=== PATIENT | female | born 1970 | race Caucasian/White ===

== ENCOUNTER 2017-05-10 09:50 | Day surgery (SDC) | payer BC ==
[2017-05-09 08:30] VITALS: BMI 52.2
[~2017-05-10 09:50] MED LIST: CIPROFLOXACIN/DEXTROSE PMX 400 MG in DEXTROSE/WATER 1 200ML.BAG IVPB ONE; FAMOTIDINE 20 MG/2 ML VIAL IV PRN; HYDROmorphone 0.5 MG/0.5 ML SYRINGE IVP PRN; LIDOCAINE 1% 20 ML VIAL (10MG/ML) FOR IV START INTRADERMA PRN; MIDAZOLAM 2 MG/2 ML VIAL IV PRN; ONDANSETRON 4 MG/2 ML VIAL IVP PRN
--- NOTE | 2017-05-10 09:59 | XR ---
EXAMINATION TYPE: XR KUB DATE OF EXAM: 05/10/2017 COMPARISON: 04/09/2017 HISTORY: Preop for right-sided lithotripsy TECHNIQUE: One view abdominal series FINDINGS: The osseous structures are intact. The bowel gas pattern is nonspecific. Arthropathy of the hips and degenerative change of the spine noted. Right kidney: There is a right-sided ureteral stent. No definite calcifications are seen along the co urse of the stent. Within the right upper quadrant there is a density which could represent a lower p ole calculus measuring 5 mm. However overlying bowel content is noted which obscures the renal outlin e. Left kidney: There is a single punctate 2 mm calculus midpole left kidney. Pelvis: Calcification within the left hemipelvis is vascular. IMPRESSION: 1. Right-sided double-J ureteral stent with no definite calcifications overlying the course of the ri ght ureteral stent. As noted above bowel content limits the lower pole of the right kidney with a que stionable 5 to 6 mm calculus overlying the lower pole.
[2017-05-10] MEDS ORDERED: LIDOCAINE 1% 20 ML VIAL (10MG/ML) FOR IV START INTRADERMA ONE (11:03)
[2017-05-10] MEDS: LACTATED RINGERS 1,000 ML IV SCH ×2 (11:03→11:44)
[2017-05-10] MEDS ORDERED: PROPOFOL 10 MG/ML 20 ML VIAL IV ONE (11:47)
[2017-05-10] MEDS ORDERED: LIDOCAINE 1% INJ 10MG/ML (20 ML MDV) ONE (11:47)
[2017-05-10] MEDS ORDERED: fentaNYL (PF) 50 MCG/ML 2 ML AMP ONE (11:47)
[2017-05-10] MEDS ORDERED: MIDAZOLAM 2 MG/2 ML VIAL ONE (11:47)
[2017-05-10] MEDS ORDERED: SUCCINYLCHOLINE CHLORIDE 100 MG/5 ML SYR IV ONE (11:47)
[2017-05-10] MEDS ORDERED: KETOROLAC 30 MG/ML 1 ML VIAL ONE (11:47)
[2017-05-10 13:26] VITALS: TEMP 98
--- NOTE | 2017-05-10 13:27 | P.OP ---
Date of Procedure: 05/10/17 Preoperative Diagnosis: Right Renal Calculus Postoperative Diagnosis: Same Procedure(s) Performed: cystoscopy, right ureteral stent removal, right ureteroscopy with Holmium laser lithotripsy and stone basketing Anesthesia: JOHANNA Surgeon: Joesph Cordova Estimated Blood Loss (ml): 0 IV fluids (ml): 800 Pathology: other (calculus fragments, sent for chemical analysis) Condition: stable Disposition: PACU Indications for Procedure: 46 yo WF recently hospitalized with right renal colic due to a 7 mm right UPJ calculus. She underwent stent placement and now comes for ureteroscopic removal of the calculus. Operative Findings: 7 mm right lower pole renal calculus, fragmented to completion. Description of Procedure: The patient was taken to the operating room and placed in the dorsolithotomy position, with legs supported in Yousif stirrups. The external genitalia was prepped and draped sterilely. The 30 lens was used to introduce the 22-Djiboutian Stortz cystoscopic sheath through the urethra and into the bladder under direct vision. The bladder was examined in its entirety. The distal end of the right ureteral stent was grasped with grasping forceps, and was removed along with the cystoscope. A 0.038 inch Glidewire was passed through the stent and up to the right renal pelvis. An 11/13-Djiboutian ureteral access catheter was passed over the wire, up to the proximal ureter. The Olympus mini flexible ureteroscope was then passed through the ureteral access catheter sheath, and was advanced under direct vision up to the right renal pelvis. The right proximal ureter was noted to be somewhat tortuous. The calculus was identified within a lower pole calyx. The 200 Holmium laser probe was passed through the ureteroscope, and the calculus was fragmented using a dusting technique. Ultimately, however, the calculus broke into several fragments. A 1.9-Djiboutian nitinol basket was used to remove these calculus fragments, which were saved and sent for chemical analysis. A final inspection of the kidney revealed only residual debris too small to basket. The ureteroscope was slowly withdrawn under direct vision, along with the ureteral access catheter sheath. There was no evidence of ureteral perforation. The patient tolerated the procedure well was taken to the recovery room in stable condition.
--- NOTE | 2017-05-10 13:34 | FL ---
EXAMINATION TYPE: FL guidance operating room DATE OF EXAM: 05/10/2017 HISTORY: Flouroscopy time 39 seconds of fluoroscopy provided. IMPRESSION: 1. Fluoroscopy time.
[2017-05-10] MEDS ORDERED: DEXAMETHASONE SOD PHOSPHATE 10 MG/ML 1 ML VIAL IV ONE (14:08)
[2017-05-10] MEDS ORDERED: HYDROmorphone 2 MG/ML 1 ML SYRINGE IVP ONE ×2 (14:15→14:20)
[2017-05-10 14:44] VITALS: RESP 18
[2017-05-10 16:35] VITALS: PULSE 70
[2017-05-10 16:36] VITALS: BP 140/70
== END 2017-05-10 16:37 | disposition home or self-care (01) ==
LOC: OR 09:50
PROVIDERS: ATTEND Urology
DX: N20.0 Calculus of kidney (principal); Z88.0 Allergy status to penicillin; F17.210 Nicotine dependence, cigarettes, uncomplicated
CPT/HCPCS: 81025; 82365; 74018; 52353; C1769; J2250; J1170 ×2; J1100; J2405; J2001; J3010; J1885; J0744; J0330; J2704

== ENCOUNTER → 2017-06-14 | Outpatient (CLI) | payer BC ==
--- NOTE | 2017-06-14 13:36 | US ---
EXAMINATION TYPE: US kidneys/renal and bladder DATE OF EXAM: 06/14/2017 COMPARISON: CT 04/08/2017 CLINICAL HISTORY: 46-year-old female N13.30 Hydronephrosis. History of right kidney stone and hydrone phrosis Technique: Multiple sonographic images of the kidneys and bladder are obtained. FINDINGS: EMPLOYMENT OFFICE CLERK NOTES: Difficult and limited study due to patient body habitus. Right Kidney: 11.8 x 5.3 x 4.9 cm with possible mild pelvicaliectasis. There is a 1.9 x 2.0 x 2.6cm exophytic isoechoic area lateral inferior pole, possible inferior pole Left Kidney: 12.2 x 6.6 x 5.9 cm without hydronephrosis. Prominent lobulated contours present with a 7 mm nonobstructive calculus in the midpole. Bladder: No gross abnormality. Bilateral Jets seen: no IMPRESSION: 1. Suggestion of residual mild pelvicaliectasis on the right. Assessment limited due to patient large body habitus. 2. Prominent contour lobulations, bilateral kidneys. A more focal rounded lesion is present along the right lower pole measuring 2.6 cm. A lobulation is suspected when correlating with the 04/08/2017 CT . Given the ultrasound appearance, six-month follow-up ultrasound is recommended to ensure stability. 3. Nonobstructive 7 mm left midpole renal calculus.
== END | disposition home or self-care (01) ==
LOC: RADUSWWP 12:10
PROVIDERS: ATTEND Urology
DX: N20.0 Calculus of kidney (principal); N28.9 Disorder of kidney and ureter, unspecified; Z88.0 Allergy status to penicillin
CPT/HCPCS: 76770

== ENCOUNTER 2020-10-23 00:34 | Inpatient (IN) | payer BC ==
[2020-10-23] MEDS ORDERED: SODIUM CHLORIDE 0.9% 1,000 ML IV STA (01:08)
[2020-10-23] MEDS ORDERED: MORPHINE SULFATE 2 MG/ML SYRINGE IVP STA (01:09)
[2020-10-23] MEDS ORDERED: ONDANSETRON 4 MG/2 ML VIAL IVP STA (01:09)
[2020-10-23 01:37] LABS: Basophils # (A) 0.1 k/uL (0-0.2); Basophils % (A) 0 %; Eosinophils # (A) 0.2 k/uL (0-0.7); Eosinophils % (A) 1 %; HCT 45.6 % (34.0-46.0); HGB 14.9 gm/dL (11.4-16.0); Lymphocytes # (A) 1.2 k/uL (1.0-4.8); Lymphocytes % (A) 10 %; MCH 28.8 pg (25.0-35.0); MCHC 32.6 g/dL (31.0-37.0); MCV 88.3 fL (80.0-100.0); Mean Platelet Volume 8.2; Monocytes # (A) 0.3 k/uL (0-1.0); Monocytes % (A) 3 %; Neutrophils # (A) 10.4 k/uL (1.3-7.7); Neutrophils % (A) 85 %; Platelet Count 266 k/uL (150-450); RBC 5.16 m/uL (3.80-5.40); RDW 13.6 % (11.5-15.5); WBC 12.3 k/uL (3.8-10.6)
[2020-10-23 01:51] LABS: ALT 13 U/L (4-34); AST 32 U/L (14-36); African American GFR (CKD) >90 (>60 ml/min/1.73 sqM); Albumin 4.6 g/dL (3.5-5.0); Alkaline Phosphatase 93 U/L (38-126); Anion Gap 13 mmol/L; Blood Urea Nitrogen 13 mg/dL (7-17); Calcium 10.1 mg/dL (8.4-10.2); Carbon Dioxide 27 mmol/L (22-30); Chloride 105 mmol/L (98-107); Glucose 152 mg/dL (74-99); Lipase 44 U/L (23-300); Non-African American GFR(CKD) >90 (>60 ml/min/1.73 sqM); Sodium 145 mmol/L (137-145); Total Bilirubin 0.9 mg/dL (0.2-1.3); Total Protein 7.7 g/dL (6.3-8.2)
[2020-10-23 01:58] LABS: Potassium 5.3 mmol/L (3.5-5.1)
[2020-10-23] MEDS ORDERED: MORPHINE SULFATE 4 MG/ML SYRINGE IVP STA (02:33)
--- NOTE | 2020-10-23 02:35 | CT ---
EXAMINATION TYPE: CT abdomen pelvis w con DATE OF EXAM: 10/23/2020 COMPARISON: 04/08/2017 HISTORY: LLQ Pain CT DLP: 2803.4 mGycm Automated exposure control for dose reduction was used. CONTRAST: Performed with IV Contrast, patient injected with 100 mL of Isovue 300. Lung bases are clear. There is no pleural effusion. Heart size is normal. There is no pericardial eff usion. Liver spleen stomach pancreas gallbladder appear intact. The bile ducts are not dilated. There is no adrenal mass. There is 5 mm calculus interpolar left kidney. There is 4 mm calculus lower pole right kidney. There is no hydronephrosis. Delayed images show normal renal excretion. There is no retroperitoneal adenopathy. There is large left side abdominal wall ventral hernia containing mult iple loops of bowel. Hernia measures 19 x 12 cm. There are few distended small bowel loops in the upp er abdomen. The distal small bowel is not dilated. Transition point is the hernia. The bladder distends smoothly. Uterus is intact. I see no pelvic mass. There are sigmoid diverticula without sign of diverticulitis. The lumbar vertebra show no compression fracture. There is a first-degree L4-5 spondylolisthesis with out spondylolysis. The bony pelvis is intact. The hip joints are intact. IMPRESSION: Nonobstructing bilateral renal calculi. There is clearing of the right side obstruction compared to o ld exam. There is evidence of a partial small bowel obstruction with borderline dilated small bowel loops that measure up to 3 cm. Large incarcerated anterior abdominal wall ventral hernia which is increased sli ghtly compared to old exam. Transition point of the small bowel is at the hernia. Sigmoid diverticulosis without diverticulitis.
[2020-10-23 02:48] LABS: Amorphous Sediment,Urine Occasional /hpf; Appearance,Urine Cloudy (Clear); Bilirubin,Urine Negative (Negative); Blood,Urine Negative (Negative); Color,Urine Light Yellow; Glucose,Urine (UA) Negative (Negative); Ketones,Urine 1+ (Negative); Leukocyte Esterase,Urine Trace (Negative); Nitrite,Urine Negative (Negative); PH, Urine 7.5 (5.0-8.0); Protein,Urine Negative (Negative); Specific Gravity,Urine 1.013 (1.001-1.035); Squamous Epithelial Cell,Urine <1 /hpf (0-4); Urobilinogen,Urine <2.0 mg/dL (<2.0); WBC,Urine 3 /hpf (0-5)
[2020-10-23] MEDS ORDERED: FAMOTIDINE 20 MG/2 ML VIAL IV STA (02:58)
--- NOTE | 2020-10-23 03:02 | ED ---
Abdominal Pain HPI - General Chief Complaint: Abdominal Pain Stated Complaint: Abdominal Pain Time Seen by Provider: 10/23/20 00:55 Source: patient, family Mode of arrival: ambulatory Limitations: no limitations - History of Present Illness Initial Comments: 50 year-old female patient presents to the emergency department for evaluation of left lower quadrant abdominal pain. Pain started a few hours ago, she started having vomiting this evening so presented here for further evaluation. She has a known hernia on the left side. Had similar episode of pain two weeks ago but it resolved and she never had vomiting. She denies any fever or chills. States bowel movements and urination have been normal. Reports history of but no other abdominal surgeries. Patient denies any recent rash, cough, shortness of breath, chest pain, diarrhea, constipation, back pain, numbness, tingling, dizziness, weakness, hematuria, dysuria, urinary urgency, urinary frequency, headache, visual changes, or any other complaints. - Related Data Home Medications Medication Instructions Recorded Confirmed Ibuprofen [Motrin] 400 mg PO Q6HR PRN 04/08/17 05/09/17 Allergies Allergy/AdvReac Type Severity Reaction Status Date / Time Penicillins AdvReac Rash/Hives Verified 10/23/20 00:51 Review of Systems ROS Statement: Those systems with pertinent positive or pertinent negative responses have been documented in the HPI. ROS Other: All systems not noted in ROS Statement are negative. Past Medical History Past Medical History: No Reported History Additional Past Medical History / Comment(s): kidney stones History of Any Multi-Drug Resistant Organisms: None Reported Past Surgical History: Section, Hernia Repair Additional Past Surgical History / Comment(s): 2 c sections Past Anesthesia/Blood Transfusion Reactions: No Reported Reaction Past Psychological History: No Psychological Hx Reported Smoking Status: Current every day smoker Past Alcohol Use History: None Reported Past Drug Use History: None Reported - Past Family History Mother Family Medical History: Diabetes Mellitus General Exam Limitations: no limitations General appearance: alert, in no apparent distress, other (This is well- developed, well nourished adult female patient in mild distress related to pain. Vital signs upon presentation are temperature 97.9F, pulse 72, respirations 20, blood pressure 129/76, pulse ox 99% on room air.) Eye exam: Present: normal appearance, PERRL, EOMI. Absent: scleral icterus, conjunctival injection, periorbital swelling ENT exam: Present: normal exam, normal oropharynx, mucous membranes moist Respiratory exam: Present: normal lung sounds bilaterally. Absent: respiratory distress, wheezes, rales, rhonchi, stridor Cardiovascular Exam: Present: regular rate, normal rhythm, normal heart sounds. Absent: systolic murmur, diastolic murmur, rubs, gallop, clicks GI/Abdominal exam: Present: soft, tenderness (Generalized worse over the left lower quadrant), normal bowel sounds, hernia (Left lower abdomen). Absent: distended, guarding, rebound, rigid Neurological exam: Present: alert, oriented X3, CN II-XII intact Psychiatric exam: Present: normal affect, normal mood Skin exam: Present: warm, dry, intact, normal color. Absent: rash Course Vital Signs 10/23/20 00:47 Temperature 97.9 F Pulse Rate 72 Respiratory 20 Rate Blood Pressure 129/76 O2 Sat by Pulse 99 Oximetry Medical Decision Making - Medical Decision Making 50-year-old female patient presents for evaluation of left-sided abdominal pain and vomiting. Physical examination did reveal generalized abdominal tenderness and guarding. Labs reviewed and did reveal white blood cell count at 12.3. Neutrophils 10.4. Potassium 5.3. Lactic acid is normal. Urinalysis shows no sign of infection. CT abdomen and pelvis was obtained and did show large ventral incarcerated abdominal hernia with a partial small bowel obstruction w ith transition point at the hernia site. Case was discussed with Dr. Bradford, we will place an NG tube, start antibiotics. She is agreeable with this plan. Case discussed with my attending Dr. Drew. - Lab Data Result diagrams: 10/23/20 01:24 10/23/20 01:24 Lab Results 10/23/20 10/23/20 10/23/20 Range/Units 01:24 01:24 01:24 WBC 12.3 H (3.8-10.6) k/uL RBC 5.16 (3.80-5.40) m/uL Hgb 14.9 (11.4-16.0) gm/dL Hct 45.6 (34.0-46.0) % MCV 88.3 (80.0-100.0) fL MCH 28.8 (25.0-35.0) pg MCHC 32.6 (31.0-37.0) g/dL RDW 13.6 (11.5-15.5) % Plt Count 266 (150-450) k/uL MPV 8.2 Neutrophils % 85 % Lymphocytes % 10 % Monocytes % 3 % Eosinophils % 1 % Basophils % 0 % Neutrophils # 10.4 H (1.3-7.7) k/uL Lymphocytes # 1.2 (1.0-4.8) k/uL Monocytes # 0.3 (0-1.0) k/uL Eosinophils # 0.2 (0-0.7) k/uL Basophils # 0.1 (0-0.2) k/uL Sodium 145 (137-145) mmol/L Potassium 5.3 H (3.5-5.1) mmol/L Chloride 105 (98-107) mmol/L Carbon Dioxide 27 (22-30) mmol/L Anion Gap 13 mmol/L BUN 13 (7-17) mg/dL Creatinine 0.53 (0.52-1.04) mg/dL Est GFR (CKD-EPI)AfAm >90 (>60 ml/min/1.73 sqM) Est GFR (CKD-EPI)NonAf >90 (>60 ml/min/1.73 sqM) Glucose 152 H (74-99) mg/dL Plasma Lactic Acid Maximo (0.7-2.0) mmol/L Calcium 10.1 (8.4-10.2) mg/dL Total Bilirubin 0.9 (0.2-1.3) mg/dL AST 32 (14-36) U/L ALT 13 (4-34) U/L Alkaline Phosphatase 93 (38-126) U/L Total Protein 7.7 (6.3-8.2) g/dL Albumin 4.6 (3.5-5.0) g/dL Lipase 44 (23-300) U/L Urine Color Light Yellow Urine Appearance Cloudy H (Clear) Urine pH 7.5 (5.0-8.0) Ur Specific Butternut 1.013 (1.001-1.035) Urine Protein Negative (Negative) Urine Glucose (UA) Negative (Negative) Urine Ketones 1+ H (Negative) Urine Blood Negative (Negative) Urine Nitrite Negative (Negative) Urine Bilirubin Negative (Negative) Urine Urobilinogen <2.0 (<2.0) mg/dL Ur Leukocyte Esterase Trace H (Negative) Urine WBC 3 (0-5) /hpf Ur Squamous Epith Cells <1 (0-4) /hpf Amorphous Sediment Occasional H (None) /hpf 10/23/20 Range/Units 01:24 WBC (3.8-10.6) k/uL RBC (3.80-5.40) m/uL Hgb (11.4-16.0) gm/dL Hct (34.0-46.0) % MCV (80.0-100.0) fL MCH (25.0-35.0) pg MCHC (31.0-37.0) g/dL RDW (11.5-15.5) % Plt Count (150-450) k/uL MPV Neutrophils % % Lymphocytes % % Monocytes % % Eosinophils % % Basophils % % Neutrophils # (1.3-7.7) k/uL Lymphocytes # (1.0-4.8) k/uL Monocytes # (0-1.0) k/uL Eosinophils # (0-0.7) k/uL Basophils # (0-0.2) k/uL Sodium (137-145) mmol/L Potassium (3.5-5.1) mmol/L Chloride (98-107) mmol/L Carbon Dioxide (22-30) mmol/L Anion Gap mmol/L BUN (7-17) mg/dL Creatinine (0.52-1.04) mg/dL Est GFR (CKD-EPI)AfAm (>60 ml/min/1.73 sqM) Est GFR (CKD-EPI)NonAf (>60 ml/min/1.73 sqM) Glucose (74-99) mg/dL Plasma Lactic Acid Maximo 1.2 (0.7-2.0) mmol/L Calcium (8.4-10.2) mg/dL Total Bilirubin (0.2-1.3) mg/dL AST (14-36) U/L ALT (4-34) U/L Alkaline Phosphatase (38-126) U/L Total Protein (6.3-8.2) g/dL Albumin (3.5-5.0) g/dL Lipase (23-300) U/L Urine Color Urine Appearance (Clear) Urine pH (5.0-8.0) Ur Specific Butternut (1.001-1.035) Urine Protein (Negative) Urine Glucose (UA) (Negative) Urine Ketones (Negative) Urine Blood (Negative) Urine Nitrite (Negative) Urine Bilirubin (Negative) Urine Urobilinogen (<2.0) mg/dL Ur Leukocyte Esterase (Negative) Urine WBC (0-5) /hpf Ur Squamous Epith Cells (0-4) /hpf Amorphous Sediment (None) /hpf - Radiology Data Radiology results: report reviewed, image reviewed CT abdomen and pelvis with contrast was obtained. Report is reviewed in its entirety. Impression by Dr. Seay shows nonobstructive bilateral renal calculi. Clearing of the right side obstruction compared to old exam. There is evidence of a partial small bowel obstruction with borderline dilated small bowel loops measuring up to 3 cm very large incarcerated anterior abdominal wall ventral hernia which is increased slightly compared to old exam. Transition plasma laws up hernia. Sigmoid diverticulosis without diverticulitis. Disposition Clinical Impression: Incarcerated hernia, Partial bowel obstruction Disposition: ADMITTED IP TO THIS [facility] Condition: Serious Decision to Admit Reason: Admit from EC Decision Date: 10/23/20 Decision Time: 03:11
[2020-10-23] MEDS ORDERED: NALOXONE 0.4 MG/ML 1 ML VIAL IV PRN (03:04)
[2020-10-23] MEDS ORDERED: metroNIDAZOLE-NS PMX 500 MG in SALINE 1 100ML.BAG IVPB STA (03:10)
[2020-10-23] MEDS ORDERED: cefTRIAXone IN SWFI 1,000 MG/10 ML SYRINGE IVP STA (03:10)
[2020-10-23] MEDS: SODIUM CHLORIDE 0.9% 1,000 ML IV SCH ×2 (03:27→20:07)
[2020-10-23] MEDS: MORPHINE SULFATE 4 MG/ML SYRINGE IV PRN ×4 (05:54→20:08)
[2020-10-23] MEDS: metroNIDAZOLE-NS PMX 500 MG in SALINE 1 100ML.BAG IVPB SCH ×2 (08:08→15:16)
[2020-10-23] MEDS: ONDANSETRON 4 MG/2 ML VIAL IVP PRN ×2 (08:10→20:07)
--- NOTE | 2020-10-23 13:14 | P.GSHP ---
History of Present Illness H&P Date: 10/23/20 Chief Complaint: Abdominal pain, nausea This a 50-year-old female who was admitted through the emergency room. Patient with abdominal pain nausea. Her CAT scan shows evidence of a incarcerated hernia. There is evidence of a partial small bowel obstruction. Past Medical History Past Medical History: No Reported History Additional Past Medical History / Comment(s): kidney stones History of Any Multi-Drug Resistant Organisms: None Reported Past Surgical History: Section, Hernia Repair Additional Past Surgical History / Comment(s): 2 c sections Past Anesthesia/Blood Transfusion Reactions: No Reported Reaction Past Psychological History: No Psychological Hx Reported Smoking Status: Former smoker Past Alcohol Use History: None Reported Additional Past Alcohol Use History / Comment(s): has smoked for about 15 years; just social 2-5 cigs a day Past Drug Use History: None Reported - Past Family History Mother Family Medical History: Diabetes Mellitus Medications and Allergies Home Medications Medication Instructions Recorded Confirmed Type Ascorbic Acid [Vitamin C] 1,000 mg PO DAILY 10/23/20 10/23/20 History Calcium/Magnesium/Zinc 1 cap PO DAILY 10/23/20 10/23/20 History [Eupjwmo-Ybyylbrni-Wthv Tablet] Cholecalciferol [Vitamin D3 (25 50 mcg PO DAILY 10/23/20 10/23/20 History Mcg = 1000 Iu)] Cider Vinegar [Apple Cider Vinegar] 300 mg PO DAILY 10/23/20 10/23/20 History Patriot-3 Fatty Acids/Fish Oil [Fish 1 cap PO DAILY 10/23/20 10/23/20 History Oil 1,000 mg Softgel] Thiamine HCl [Vitamin B-1] 100 mg PO DAILY 10/23/20 10/23/20 History Allergies Allergy/AdvReac Type Severity Reaction Status Date / Time Penicillins AdvReac Rash/Hives Verified 10/23/20 10:43 Surgical - Exam Vital Signs Temp Pulse Resp BP Pulse Ox 97.9 F 72 20 129/76 99 10/23/20 00:47 10/23/20 00:47 10/23/20 00:47 10/23/20 00:47 10/23/20 00:47 - General well developed, well nourished - Eyes PERRL - ENT normal pinna - Respiratory normal expansion - Cardiovascular Rhythm: regular - Abdomen Incarcerated incisional hernia located where the umbilicus was. Abdomen: soft, non tender Results - Labs 10/23/20 01:24 10/23/20 01:24 Abnormal Lab Results - Last 24 Hours (Table) 10/23/20 10/23/20 10/23/20 Range/Units 01:24 01:24 01:24 WBC 12.3 H (3.8-10.6) k/uL Neutrophils # 10.4 H (1.3-7.7) k/uL Potassium 5.3 H (3.5-5.1) mmol/L Glucose 152 H (74-99) mg/dL Urine Appearance Cloudy H (Clear) Urine Ketones 1+ H (Negative) Ur Leukocyte Esterase Trace H (Negative) Amorphous Sediment Occasional H (None) /hpf Diabetes panel 10/23/20 Range/Units 01:24 Sodium 145 (137-145) mmol/L Potassium 5.3 H (3.5-5.1) mmol/L Chloride 105 (98-107) mmol/L Carbon Dioxide 27 (22-30) mmol/L BUN 13 (7-17) mg/dL Creatinine 0.53 (0.52-1.04) mg/dL Glucose 152 H (74-99) mg/dL Calcium 10.1 (8.4-10.2) mg/dL AST 32 (14-36) U/L ALT 13 (4-34) U/L Alkaline Phosphatase 93 (38-126) U/L Total Protein 7.7 (6.3-8.2) g/dL Albumin 4.6 (3.5-5.0) g/dL Calcium panel 10/23/20 Range/Units 01:24 Calcium 10.1 (8.4-10.2) mg/dL Albumin 4.6 (3.5-5.0) g/dL Pituitary panel 10/23/20 Range/Units 01:24 Sodium 145 (137-145) mmol/L Potassium 5.3 H (3.5-5.1) mmol/L Chloride 105 (98-107) mmol/L Carbon Dioxide 27 (22-30) mmol/L BUN 13 (7-17) mg/dL Creatinine 0.53 (0.52-1.04) mg/dL Glucose 152 H (74-99) mg/dL Calcium 10.1 (8.4-10.2) mg/dL Adrenal panel 10/23/20 Range/Units 01:24 Sodium 145 (137-145) mmol/L Potassium 5.3 H (3.5-5.1) mmol/L Chloride 105 (98-107) mmol/L Carbon Dioxide 27 (22-30) mmol/L BUN 13 (7-17) mg/dL Creatinine 0.53 (0.52-1.04) mg/dL Glucose 152 H (74-99) mg/dL Calcium 10.1 (8.4-10.2) mg/dL Total Bilirubin 0.9 (0.2-1.3) mg/dL AST 32 (14-36) U/L ALT 13 (4-34) U/L Alkaline Phosphatase 93 (38-126) U/L Total Protein 7.7 (6.3-8.2) g/dL Albumin 4.6 (3.5-5.0) g/dL Assessment and Plan Assessment: Partial small bowel traction related to incarcerated hernia. Patient observed today. If she shows no improvement she will need to undergo repair of incarcerated hernia.
--- NOTE | 2020-10-24 00:02 | P.CON ---
Consult Note - . Consult date: 10/23/20 Assessment/Plan:: Reason for consult - Medical management Ms. Aparicio is a 50-year-old female with a past medical history of morbid obesity, nephrolithiasis, hernia repair coming into the hospital with a chief complaint of left lower quadrant abdominal pain. Patient states that she started to have left lower abdominal pain for the past couple of days on and off, she thought it would go away did not pay much attention. But this morning the pain has wor sened and she started to throw up couple of times. She also reported loss of appetite. Patient denied having any fevers chills or rigors. No chest pain or palpitations. No cough or difficulty breathing. No dysuria or hematuria. Patient states that she has history of umbilical hernia. In the ER patient had temperature 97.9, heart rate 72, respiratory rate 20, blood pressure 129/76 saturating at 99% on room air. She had a CAT scan of the abdomen and pelvis showing evidence of partial small bowel obstruction and large incarcerated anterior abdominal wall ventral hernia, sigmoid diverticulosis without diverticulitis. On reviewing her labs white count of 12.3, hemoglobin 14.9, platelets 266. Sodium 145, potassium 5.3, chloride 105, bicarb 27, BUN 13, creatinine 0.53. REVIEW OF SYSTEMS: CONSTITUTIONAL: No fever, no malaise, no fatigue. HEENT: No recent visual problems or hearing problems. Denied any sore throat. CARDIOVASCULAR: No chest pain, palpitations or lower extremity swelling PULMONARY: No shortness of breath, no cough, no hemoptysis. GASTROINTESTINAL: As per HPI NEUROLOGICAL: No headaches, no weakness, no numbness. HEMATOLOGICAL: Denies any bleeding or petechiae. GENITOURINARY: Denies any burning micturition, frequency, or urgency. MUSCULOSKELETAL/RHEUMATOLOGICAL: Denies any joint pain, swelling, or any muscle pain. ENDOCRINE: Denies any polyuria or polydipsia. The rest of the 14-point review of systems is negative. Past Medical History Past Medical History: No Reported History Additional Past Medical History / Comment(s): kidney stones History of Any Multi-Drug Resistant Organisms: None Reported Past Surgical History: Section, Hernia Repair Additional Past Surgical History / Comment(s): 2 c sections Past Anesthesia/Blood Transfusion Reactions: No Reported Reaction Past Psychological History: No Psychological Hx Reported Smoking Status: Former smoker Past Alcohol Use History: None Reported Additional Past Alcohol Use History / Comment(s): has smoked for about 15 years; just social 2-5 cigs a day Past Drug Use History: None Reported - Past Family History Mother Family Medical History: Diabetes Mellitus Medications and Allergies Home Medications Medication Instructions Recorded Confirmed Type Ascorbic Acid [Vitamin C] 1,000 mg PO DAILY 10/23/20 10/23/20 History Calcium/Magnesium/Zinc 1 cap PO DAILY 10/23/20 10/23/20 History [Kkzzvqm-Vnpqhgjhs-Dwnt Tablet] Cholecalciferol [Vitamin D3 (25 50 mcg PO DAILY 10/23/20 10/23/20 History Mcg = 1000 Iu)] Cider Vinegar [Apple Cider Vinegar] 300 mg PO DAILY 10/23/20 10/23/20 History [place]-3 Fatty Acids/Fish Oil [Fish 1 cap PO DAILY 10/23/20 10/23/20 History Oil 1,000 mg Softgel] Thiamine HCl [Vitamin B-1] 100 mg PO DAILY 10/23/20 10/23/20 History Allergies Allergy/AdvReac Type Severity Reaction Status Date / Time Penicillins AdvReac Rash/Hives Verified 10/23/20 10:43 Physical Exam Vitals: Vital Signs Temp Pulse Pulse Resp BP BP Pulse Ox 10/23/20 12:23 98.1 F 65 17 140/73 96 10/23/20 08:00 68 16 10/23/20 04:10 98.3 F 68 16 154/81 100 10/23/20 03:45 66 18 167/73 98 10/23/20 00:47 97.9 F 72 20 129/76 99 Intake and Output 10/23/20 10/23/20 10/23/20 06:59 14:59 22:59 Intake Total 100 Balance 100 Intake: Intake, IV Titration 100 Amount metroNIDAZOLE-NS PMX 500 100 mg In Saline 1 100ml.bag @ 100 mls/hr IVPB Q8HR [facility] Rx#:[id number] Other: # Voids 1 1 Weight 122.47 kg PHYSICAL EXAMINATION: GENERAL: The patient is alert and oriented x3, not in any acute distress. morbidly obese HEENT: Pupils are round and equally reacting to light. EOMI. No scleral icterus. No conjunctival pallor. CARDIOVASCULAR: S1 and S2 present. No murmurs, rubs, or gallops. PULMONARY: Chest is clear to auscultation, no wheezing or crackles. ABDOMEN: + tenderness in the left lower quadrant MUSCULOSKELETAL: No joint swelling or deformity. EXTREMITIES: No edema NEUROLOGICAL: Gross neurological examination did not reveal any focal deficits. SKIN:No rash Results CBC & Chem 7: 10/23/20 01:24 10/23/20 01:24 Labs: Abnormal Lab Results - Last 24 Hours (Table) 10/23/20 10/23/20 10/23/20 Range/Units 01:24 01:24 01:24 WBC 12.3 H (3.8-10.6) k/uL Neutrophils # 10.4 H (1.3-7.7) k/uL Potassium 5.3 H (3.5-5.1) mmol/L Glucose 152 H (74-99) mg/dL Urine Appearance Cloudy H (Clear) Urine Ketones 1+ H (Negative) Ur Leukocyte Esterase Trace H (Negative) Amorphous Sediment Occasional H (None) /hpf Thrombosis Risk Factor Assmnt - Choose All That Apply Each Factor Represents 1 point: Age 41-60 years, Obesity (BMI >25) Other Risk Factors: No Other congenital or acquired thrombophilia - If yes, enter type in comment: No Thrombosis Risk Factor Assessment Total Risk Factor Score: 2 Thrombosis Risk Factor Assessment Level: Low Risk ASSESSMENT Incarcerated anterior abdominal wall ventral hernia Leukocytosis secondary to above Hyperkalemia History of nephrolithiasis Morbid obesity with BMI of 47.8 Plan: Patient does not have significant medical history, she takes multivitamins. She would be a low risk for moderate risk surgery. Continue with ceftriaxone and Flagyl for incarcerated hernia. Continue with IV fluids and pain medications. Patient to be continued NPO. Management of incarcerated hernia as per primary team. Further recommendations to follow depending on the progress of the patient.
[2020-10-24] MEDS: metroNIDAZOLE-NS PMX 500 MG in SALINE 1 100ML.BAG IVPB SCH ×4 (00:12→23:36)
[2020-10-24] MEDS: SODIUM CHLORIDE 0.9% 1,000 ML IV SCH ×2 (06:04→19:03)
[2020-10-24] MEDS: PANTOPRAZOLE 40 MG/10 ML VIAL IVP SCH (09:25)
--- NOTE | 2020-10-24 13:41 | P.PN ---
Progress Note - Text Progress Note Date: 10/24/20 Patient still has complaints of nausea. She has completed indigestion. On exam vital signs are stable. Abdomen soft. Hernias mildly tender. Small bowel obstruction related to incarcerated ventral hernia. Patient will undergo operative repair tomorrow
[2020-10-24 17:21] LABS: African American GFR (CKD) >90 (>60 ml/min/1.73 sqM); Anion Gap 12 mmol/L; Blood Urea Nitrogen 12 mg/dL (7-17); Calcium 9.9 mg/dL (8.4-10.2); Carbon Dioxide 18 mmol/L (22-30); Chloride 114 mmol/L (98-107); Glucose 124 mg/dL (74-99); Non-African American GFR(CKD) >90 (>60 ml/min/1.73 sqM); Sodium 144 mmol/L (137-145)
[2020-10-24 17:52] LABS: Potassium 4.9 mmol/L (3.5-5.1)
--- NOTE | 2020-10-24 22:23 | P.PN ---
Subjective Progress Note Date: 10/24/20 Principal diagnosis: Incarcerated hernia Ms. Aparicio is a 50-year-old female with a past medical history of morbid obesity, nephrolithiasis, hernia repair coming into the hospital with a chief complaint of left lower quadrant abdominal pain. Patient states that she started to have left lower abdominal pain for the past couple of days on and off, she thought it would go away did not pay much attention. But this morning the pain has worsened and she started to throw up couple of times. She also reported loss of appetite. Patient denied having any fevers chills or rigors. No chest pain or palpitations. No cough or difficulty breathing. No dysuria or hematuria. Patient states that she has history of umbilical hernia. In the ER patient had temperature 97.9, heart rate 72, respiratory rate 20, blood pressure 129/76 saturating at 99% on room air. She had a CAT scan of the abdomen and pelvis showing evidence of partial small bowel obstruction and large incarcerated anterior abdominal wall ventral hernia, sigmoid diverticulosis without diverticulitis. On reviewing her labs white count of 12.3, hemoglobin 14.9, platelets 266. Sodium 145, potassium 5.3, chloride 105, bicarb 27, BUN 13, creatinine 0.53. On 10/24/2020 -patient is seen and examined at the bedside. She is sitting comfortably in the chair by the bedside appears to be no acute distress. Patient states that her abdominal pain is improving. But she complains of nausea and reflux-like symptoms, she thinks she might be having a heartburn. She denies having any fevers chills or rigors. No chest pain or palpitations. On reviewing her vitals temperature 98.7, heart rate 66, respiratory rate 16, blood pressure 184/82, saturating 96% on room air. On reviewing her labs from this morning sodium 144, potassium 4.9, hemolyzed specimen, chloride 114, bicarb 18, BUN 12, creatinine 0.42. Patient continues to be on antibiotics in the form of ceftriaxone and Flagyl. Active Medications Sodium Chloride (Saline 0.9%) 1,000 mls @ 75 mls/hr IV .[id number] [facility] Last Admin: 10/24/20 19:03 Dose: 75 mls/hr Documented by: Metronidazole 500 mg/ IV (Solution) 100 mls @ 100 mls/hr IVPB Q8HR [facility] Last Admin: 10/24/20 17:48 Dose: 100 mls/hr Documented by: Ceftriaxone Sodium 1 gm/ (Sodium Chloride) 50 mls @ 100 mls/hr IVPB Q24H [facility] Last Admin: 10/24/20 20:35 Dose: 100 mls/hr Documented by: Morphine Sulfate (Morphine Sulfate 4 Mg/Ml Syringe) 4 mg IV Q4HR PRN PRN Reason: Severe Pain Last Admin: 10/23/20 20:08 Dose: 4 mg Documented by: Naloxone HCl (Naloxone 0.4 Mg/Ml 1 Ml Vial) 0.2 mg IV Q2M PRN PRN Reason: Opioid Reversal Ondansetron HCl (Ondansetron 4 Mg/2 Ml Vial) 4 mg IVP Q8HR PRN PRN Reason: Nausea And Vomiting Last Admin: 10/23/20 20:07 Dose: 4 mg Documented by: Pantoprazole Sodium (Pantoprazole 40 Mg/10 Ml Vial) 40 mg IVP DAILY [facility] Last Admin: 10/24/20 09:25 Dose: 40 mg Documented by: Objective - Vital Signs Vital signs: Vital Signs Temp 98.7 F 10/24/20 05:00 Pulse 66 10/24/20 05:00 Resp 16 10/24/20 05:00 BP 184/82 10/24/20 05:00 Pulse Ox 96 10/24/20 05:00 Intake & Output 10/23/20 10/24/20 10/24/20 18:59 06:59 18:59 Intake Total 240 150 Balance 240 150 Intake: Intake, IV Titration 150 Amount cefTRIAXone 1 gm In 50 Sodium Chloride 0.9% 50 ml @ 100 mls/hr IVPB Q24H [facility] Rx#:[id number] metroNIDAZOLE-NS PMX 500 100 mg In Saline 1 100ml.bag @ 100 mls/hr IVPB Q8HR [facility] Rx#:[id number] Oral 240 0 Other: # Voids 4 2 - Exam PHYSICAL EXAMINATION: GENERAL: The patient is alert and oriented x3, not in any acute distress. morbidly obese HEENT: Pupils are round and equally reacting to light. EOMI. No scleral icterus. No conjunctival pallor. CARDIOVASCULAR: S1 and S2 present. No murmurs, rubs, or gallops. PULMONARY: Chest is clear to auscultation, no wheezing or crackles. ABDOMEN: + tenderness in the left lower quadrant MUSCULOSKELETAL: No joint swelling or deformity. EXTREMITIES: No edema NEUROLOGICAL: Gross neurological examination did not reveal any focal deficits. SKIN:No rash - Labs CBC & Chem 7: 10/23/20 01:24 10/24/20 16:52 Assessment and Plan Assessment: ASSESSMENT Incarcerated anterior abdominal wall ventral hernia Leukocytosis secondary to above Hyperkalemia - resolved History of nephrolithiasis Morbid obesity with BMI of 47.8 Systolic BP high - could be due to pain Plan: Patient does not have significant medical history, she takes multivi tamins. She would be a low risk for moderate risk surgery. Continue with ceftriaxone and Flagyl for incarcerated hernia. Continue with IV fluids and pain medications. Patient to be continued NPO. Management of incarcerated hernia as per primary team. Further recommendations to follow depending on the progress of the patient.
[2020-10-25] MEDS ORDERED: hydrALAZINE HCL 20 MG/ML 1 ML VIAL IVP PRN (01:42)
[2020-10-25] MEDS: ENOXAPARIN 40 MG/0.4 ML SYRINGE SQ SCH (08:50)
[2020-10-25] MEDS: metroNIDAZOLE-NS PMX 500 MG in SALINE 1 100ML.BAG IVPB SCH ×3 (08:53→23:25)
[2020-10-25] MEDS: PANTOPRAZOLE 40 MG/10 ML VIAL IVP SCH (08:54)
[2020-10-25] MEDS ORDERED: PROPOFOL 10 MG/ML 20 ML VIAL IV ONE (10:23)
[2020-10-25] MEDS ORDERED: fentaNYL (PF) 50 MCG/ML 2 ML AMP ONE (10:23)
[2020-10-25] MEDS ORDERED: GLYCOPYRROLATE 0.2 MG/ML 2 ML VIAL ONE (10:23)
[2020-10-25] MEDS ORDERED: ROCURONIUM 10 MG/ML (5 ML VIAL) IV ONE (10:23)
[2020-10-25] MEDS ORDERED: HEPARIN SODIUM,PORCINE 5,000 UNIT/ML 1 ML VIAL ONE (10:23)
[2020-10-25] MEDS ORDERED: NEOSTIGMINE 1 MG/ML 10 ML VIAL ONE (10:23)
[2020-10-25] MEDS ORDERED: ONDANSETRON 4 MG/2 ML VIAL ONE (10:23)
[2020-10-25] MEDS ORDERED: SUCCINYLCHOLINE CHLORIDE 100 MG/5 ML SYR IV ONE (10:23)
[2020-10-25] MEDS ORDERED: MIDAZOLAM 2 MG/2 ML VIAL ONE (10:23)
[2020-10-25] MEDS ORDERED: DEXAMETHASONE SOD PHOSPHATE 10 MG/ML 1 ML VIAL ONE (10:23)
[2020-10-25] MEDS ORDERED: KETOROLAC 15 MG/ML 1 ML VIAL ONE (10:23)
[2020-10-25] MEDS ORDERED: HYDROmorphone (PF) 1 MG/ML ONE (10:23)
[2020-10-25] MEDS ORDERED: SODIUM CHLORIDE 0.9% 1,000 ML IV ONE (10:25)
[2020-10-25] MEDS ORDERED: SODIUM CHLORIDE 0.9% 150 ML with ceFAZolin 3,000 MG IV ONE ×2 (10:45)
[2020-10-25] MEDS ORDERED: LACTATED RINGERS 1,000 ML IV ONE (11:12)
[2020-10-25] MEDS ORDERED: HYDROmorphone 0.5 MG/0.5 ML SYRINGE IVP ONE ×2 (12:05→12:15)
--- NOTE | 2020-10-25 12:35 | P.OP ---
Date of Procedure: 10/25/20 Preoperative Diagnosis: Incarcerated incisional hernia Postoperative Diagnosis: Incarcerated incisional hernia Procedure(s) Performed: Open repair of incarcerated incisional hernia Omentectomy Anesthesia: JOHANNA Surgeon: Kelechi Bradford Estimated Blood Loss (ml): 20 Pathology: other (Omentum) Condition: stable Disposition: PACU Description of Procedure: The patient's placed on the operating table supine position. She received general anesthesia. Her abdomen was prepped and draped usual fashion. The abdomen was entered through midline incision. Some taste as stat was divided. The hernia sac was then dissected free. 30 sac was then opened. And then the fascia was opened as well. There was a small bowel obstruction within the hernia sac. The adhesions were lysed. The nonviable omentum was transected and sent to pathology. The hernia sacs of pathology. The fascia was then closed with interrupted #1 Ethibond suture. Skin was closed rei. Patient top she will was sent to recovery room stable condition.
--- NOTE | 2020-10-25 14:54 | P.PN ---
Progress Note - Text Progress Note Date: 10/25/20 Presenting complaint: Incarcerated hernia Hospital course: Ms. Aparicio is a 50-year-old female with a past medical history of morbid obesity, nephrolithiasis, hernia repair coming into the hospital with a chief complaint of left lower quadrant abdominal pain. Patient states that she started to have left lower abdominal pain for the past couple of days on and off, she thought it would go away did not pay much attention. But this morning the pain has worsened and she started to throw up couple of times. also reported loss of appetite. denied having any fevers chills or rigors. No chest pain or palpitations. No cough or difficulty breathing. No dysuria or hematuria. she has history of umbilical hernia. In the ER patient had temperature 97.9, heart rate 72, respiratory rate 20, blood pressure 129/76 saturating at 99% on room air. She had a CAT scan of the abdomen and pelvis showing evidence of partial small bowel obstruction and large incarcerated anterior abdominal wall ventral hernia, sigmoid diverticulosis without diverticulitis. Today: Open repair of incarcerated incisional hernia. Postprocedure patient has abdominal binder. No nausea vomiting. Some abdominal pain. Review of systems: Was done for constitutional, cardiovascular, GI, pulmonary. relevant finding as above Active Medications Enoxaparin Sodium (Enoxaparin 40 Mg/0.4 Ml Syringe) 40 mg SQ DAILY [facility] Last Admin: 10/25/20 08:50 Dose: Not Given Documented by: Hydralazine HCl (Hydralazine Hcl 20 Mg/Ml 1 Ml Vial) 10 mg IVP Q6HR PRN PRN Reason: Blood Pressure - High Hydromorphone HCl (Hydromorphone 1 Mg/Ml 1 Ml Syringe) 1 mg IVP Q3HR PRN PRN Reason: Pain Sodium Chloride (Saline 0.9%) 1,000 mls @ 75 mls/hr IV .[id number] [facility] Last Admin: 10/24/20 19:03 Dose: 75 mls/hr Documented by: Metronidazole 500 mg/ IV (Solution) 100 mls @ 100 mls/hr IVPB Q8HR [facility] Last Admin: 10/25/20 08:53 Dose: 100 mls/hr Documented by: Ceftriaxone Sodium 1 gm/ (Sodium Chloride) 50 mls @ 100 mls/hr IVPB Q24H [facility] Last Admin: 10/24/20 20:35 Dose: 100 mls/hr Documented by: Morphine Sulfate (Morphine Sulfate 4 Mg/Ml Syringe) 4 mg IV Q4HR PRN PRN Reason: Severe Pain Last Admin: 10/23/20 20:08 Dose: 4 mg Documented by: Naloxone HCl (Naloxone 0.4 Mg/Ml 1 Ml Vial) 0.2 mg IV Q2M PRN PRN Reason: Opioid Reversal Ondansetron HCl (Ondansetron 4 Mg/2 Ml Vial) 4 mg IVP Q8HR PRN PRN Reason: Nausea And Vomiting Last Admin: 10/23/20 20:07 Dose: 4 mg Documented by: Pantoprazole Sodium (Pantoprazole 40 Mg/10 Ml Vial) 40 mg IVP DAILY [facility] Last Admin: 10/25/20 08:54 Dose: 40 mg Documented by: INVESTIGATIONS, reviewed in the clinical context: Potassium 4.9 creatinine 0.42 WBC 12.3 hemoglobin 14.9 platelets 266 Computed tomography scan of the abdomen pelvis with contrast: Kidney stones in both the left and right kidney. Large left-sided abdominal wall ventral hernia containing multiple loops of small bowel. Transition point is of the hernia. Sigmoid diverticulosis Assessment and plan: -Acute incarcerated left Sided abdominal wall ventral hernia, containing multiple loops of small bowel. Underwent open repair of the same. Abdominal binder. -Sigmoid diverticulosis, asymptomatic -Bilateral nephrolithiasis, asymptomatic Follow clinically -Morbid obesity BMI 47.8 Follow clinically and follow with PCP Patient's postoperative. IV fluids. On IV ceftriaxone and IV Flagyl. Due to prophylaxis. Increase activity as tolerated. Care was discussed with the patient. Questions answered.
[2020-10-25] MEDS: HYDROmorphone 1 MG/ML 1 ML SYRINGE IVP PRN (17:12)
[2020-10-25] MEDS: SODIUM CHLORIDE 0.9% 1,000 ML IV SCH ×2 (17:13→21:06)
[2020-10-26] MEDS: HYDROmorphone 1 MG/ML 1 ML SYRINGE IVP PRN ×3 (04:26→20:17)
[2020-10-26] MEDS: PANTOPRAZOLE 40 MG/10 ML VIAL IVP SCH (07:45)
[2020-10-26] MEDS: metroNIDAZOLE-NS PMX 500 MG in SALINE 1 100ML.BAG IVPB SCH ×3 (07:45→23:28)
[2020-10-26] MEDS: ENOXAPARIN 40 MG/0.4 ML SYRINGE SQ SCH (07:45)
[2020-10-26] MEDS: SODIUM CHLORIDE 0.9% 1,000 ML IV SCH ×2 (07:53→23:27)
[2020-10-26] MEDS ORDERED: ENOXAPARIN 40 MG/0.4 ML SYRINGE SQ SCH (09:00)
--- NOTE | 2020-10-26 13:39 | P.PN ---
Subjective Progress Note Date: 10/26/20 CHIEF COMPLAINT: Incarcerated incisional hernia HISTORY OF PRESENT ILLNESS: Patient is status post open repair of incarcerated incisional hernia and omentectomy. Postop day #1. Patient reports getting up to move and she had small amount of blood gush from her incision site. Patient reports that her pain is controlled. She denies any vomiting. She's had some mild nausea. No BM or flatus yet. She is currently on a full liquid diet. Afebrile. Sodium 144 potassium 4.9 CO2 18 creatinine 0.42 Nursing staff did notify me this afternoon the patient did have another small amounts about quarter size of blood gush from distal incision. PHYSICAL EXAM: VITAL SIGNS: Reviewed. GENERAL: Well-developed in no acute distress. HEENT: No sclera icterus. Extraocular movements grossly intact. Moist buccal mucosa. Head is atraumatic, normocephalic. ABDOMEN: Soft. Nondistended. Obese. There is blood noted at the distal portion of the incision dressing. The dressing has been reinforced. The britany nforced dressing is clean and dry NEUROLOGIC: Alert and oriented. Cranial nerves II through XII grossly intact. ASSESSMENT: 1. Incarcerated incisional hernia status post open repair PLAN: -We'll have nursing staff change in reinforced dressing. -Continue with abdominal binder. -Continue full liquid diet -Continue antibiotics -Encourage patient to increase activity -Encourage patient to use incentive spirometer -GI prophylaxis Protonix and DVT prophylaxis Lovenox Physician Sample Card Maker note has been reviewed by physician. Signing provider agrees with the documented findings, assessment, and plan of care. Objective - Vital Signs Vital signs: Vital Signs Temp 97.9 F 10/26/20 12:21 Pulse 56 L 10/26/20 12:21 Resp 19 10/26/20 12:21 BP 128/76 10/26/20 12:21 Pulse Ox 93 L 10/26/20 12:21 Intake & Output 10/25/20 10/26/20 10/26/20 18:59 06:59 18:59 Intake Total 2130 1050 Output Total 255 600 Balance 1875 450 Intake: IV 1450 Intake, IV Titration 680 650 Amount Sodium Chloride 0.9% 1, 500 000 ml @ 75 mls/hr IV . [id number] [facility] Rx#:[id number] cefTRIAXone 1 gm In 680 50 Sodium Chloride 0.9% 50 ml @ 100 mls/hr IVPB Q24H [facility] Rx#:[id number] metroNIDAZOLE-NS PMX 500 100 mg In Saline 1 100ml.bag @ 100 mls/hr IVPB Q8HR [facility] Rx#:[id number] Oral 400 Output: Urine 205 600 Estimated Blood Loss 50 Other: Voiding Method Toilet Indwelling Catheter Indwelling Catheter - Labs CBC & Chem 7: 10/23/20 01:24 10/24/20 16:52
--- NOTE | 2020-10-26 17:53 | P.PN ---
Progress Note - Text Progress Note Date: 10/26/20 Presenting complaint: Incarcerated hernia Hospital course: Ms. Aparicio is a 50-year-old female with a past medical history of morbid obesity, nephrolithiasis, hernia repair coming into the hospital with a chief complaint of left lower quadrant abdominal pain. Patient states that she started to have left lower abdominal pain for the past couple of days on and off, she thought it would go away did not pay much attention. But this morning the pain has worsened and she started to throw up couple of times. also reported loss of appetite. denied having any fevers chills or rigors. No chest pain or palpitations. No cough or difficulty breathing. No dysuria or hematuria. she has history of umbilical hernia. In the ER patient had temperature 97.9, heart rate 72, respiratory rate 20, blood pressure 129/76 saturating at 99% on room air. She had a CAT scan of the abdomen and pelvis showing evidence of partial small bowel obstruction and large incarcerated anterior abdominal wall ventral hernia, sigmoid diverticulosis without diverticulitis. October 25: Open repair of incarcerated incisional hernia. Postprocedure patient has abdominal binder. Today: Sitting up in a chair. Abdominal pain. Had some wheezing from the incision site. Distaste in the mouth. No flatus. at the bedside. Review of systems: Was done for constitutional, cardiovascular, GI, pulmonary. relevant finding as above Active Medications Enoxaparin Sodium (Enoxaparin 40 Mg/0.4 Ml Syringe) 40 mg SQ DAILY [facility] Last Admin: 10/26/20 07:45 Dose: 40 mg Documented by: Hydralazine HCl (Hydralazine Hcl 20 Mg/Ml 1 Ml Vial) 10 mg IVP Q6HR PRN PRN Reason: Blood Pressure - High Hydromorphone HCl (Hydromorphone 1 Mg/Ml 1 Ml Syringe) 1 mg IVP Q3HR PRN PRN Reason: Pain Last Admin: 10/26/20 11:34 Dose: 1 mg Documented by: Sodium Chloride (Saline 0.9%) 1,000 mls @ 75 mls/hr IV .[id number] [facility] Last Admin: 10/26/20 07:53 Dose: 75 mls/hr Documented by: Metronidazole 500 mg/ IV (Solution) 100 mls @ 100 mls/hr IVPB Q8HR [facility] Last Admin: 10/26/20 15:56 Dose: 100 mls/hr Documented by: Ceftriaxone Sodium 1 gm/ (Sodium Chloride) 50 mls @ 100 mls/hr IVPB Q24H [facility] Last Admin: 10/25/20 20:25 Dose: 100 mls/hr Documented by: Morphine Sulfate (Morphine Sulfate 4 Mg/Ml Syringe) 4 mg IV Q4HR PRN PRN Reason: Severe Pain Last Admin: 10/23/20 20:08 Dose: 4 mg Documented by: Naloxone HCl (Naloxone 0.4 Mg/Ml 1 Ml Vial) 0.2 mg IV Q2M PRN PRN Reason: Opioid Reversal Ondansetron HCl (Ondansetron 4 Mg/2 Ml Vial) 4 mg IVP Q8HR PRN PRN Reason: Nausea And Vomiting Last Admin: 10/23/20 20:07 Dose: 4 mg Documented by: Pantoprazole Sodium (Pantoprazole 40 Mg/10 Ml Vial) 40 mg IVP DAILY [facility] Last Admin: 10/26/20 07:45 Dose: 40 mg Documented by: On examination: VITAL SIGNS: 97.9, 56, 19, 1 28 x 7 6, 93% room air GENERAL APPEARANCE: Reclining in a chair. Awake tired HEENT: Normal external appearance of nose and ear. Oral cavity normal EYES: Pupils equal. Conjunctiva normal. NECK: JVD not raised. Mass not palpable. RESPIRATORY: Respiratory effort normal. Lungs clear to auscultation. CARDIOVASCULAR: First and second sounds normal. No edema. ABDOMEN: Tender, binder in place, no mass palpable, blood soaked dressing PSYCHIATRY: Alert and oriented x3. Mood and affect anxious INVESTIGATIONS, reviewed in the clinical context: Potassium 4.9 creatinine 0.42 WBC 12.3 hemoglobin 14.9 platelets 266 Computed tomography scan of the abdomen pelvis with contrast: Kidney stones in both the left and right kidney. Large left-sided abdominal wall ventral hernia containing multiple loops of small bowel. Transition point is of the hernia. Sigmoid diverticulosis Assessment and plan: -Acute incarcerated left Sided abdominal wall ventral hernia, containing multiple loops of small bowel. Underwent open repair of the same. Abdominal binder. -Significant oozing from incisional site DC Lovenox. Follow CBC -Sigmoid diverticulosis, asymptomatic -Bilateral nephrolithiasis, asymptomatic Follow clinically -Morbid obesity BMI 47.8 Follow clinically and follow with PCP Discussed with the patient and had the bedside. Change dressing follow with surgery. Binder to remain in place. Check CBC BMP
[2020-10-27 06:00] LABS: African American GFR (CKD) >90 (>60 ml/min/1.73 sqM); Anion Gap 6 mmol/L; Blood Urea Nitrogen 12 mg/dL (7-17); Calcium 8.5 mg/dL (8.4-10.2); Carbon Dioxide 23 mmol/L (22-30); Chloride 110 mmol/L (98-107); Glucose 104 mg/dL (74-99); Non-African American GFR(CKD) >90 (>60 ml/min/1.73 sqM); Potassium 4.2 mmol/L (3.5-5.1); Sodium 139 mmol/L (137-145)
[2020-10-27 06:27] LABS: Basophils # (A) 0.1 k/uL (0-0.2); Basophils % (A) 1 %; Eosinophils # (A) 0.2 k/uL (0-0.7); Eosinophils % (A) 2 %; HGB 13.5 gm/dL (11.4-16.0); Lymphocytes # (A) 2.3 k/uL (1.0-4.8); Lymphocytes % (A) 21 %; MCH 29.8 pg (25.0-35.0); MCV 90.1 fL (80.0-100.0); Mean Platelet Volume 9.3; Monocytes # (A) 0.7 k/uL (0-1.0); Monocytes % (A) 7 %; Neutrophils # (A) 7.7 k/uL (1.3-7.7); Neutrophils % (A) 69 %; RBC 4.55 m/uL (3.80-5.40); RDW 13.8 % (11.5-15.5)
[2020-10-27 06:29] LABS: Platelet Count 128 k/uL (150-450)
[2020-10-27] MEDS: metroNIDAZOLE-NS PMX 500 MG in SALINE 1 100ML.BAG IVPB SCH ×3 (08:40→23:36)
[2020-10-27] MEDS: PANTOPRAZOLE 40 MG/10 ML VIAL IVP SCH (08:41)
[2020-10-27] MEDS ORDERED: NA PHOS,M-B/NA PHOS,DI-BA 133 ML ENEMA RECTAL ONE (15:00)
[2020-10-27] MEDS: SODIUM CHLORIDE 0.9% 1,000 ML IV SCH (15:00)
--- NOTE | 2020-10-27 15:02 | P.PN ---
Subjective Progress Note Date: 10/27/20 CHIEF COMPLAINT: Incarcerated incisional hernia HISTORY OF PRESENT ILLNESS: Patient is status post open repair of incarcerated incisional hernia and omentectomy. Postop day #2. Patient reports that her p ain is controlled. She denies any nausea or vomiting. She is having flatus. No bowel movement. Afebrile. WBC is 11. She's currently on a full liquid diet. Patient has had no further bleeding from her incision site. PHYSICAL EXAM: VITAL SIGNS: Reviewed. GENERAL: Well-developed in no acute distress. HEENT: No sclera icterus. Extraocular movements grossly intact. Moist buccal mucosa. Head is atraumatic, normocephalic. ABDOMEN: Soft. Nondistended. Obese. Incisions clean dry and intact NEUROLOGIC: Alert and oriented. Cranial nerves II through XII grossly intact. ASSESSMENT: 1. Incarcerated incisional hernia status post open repair PLAN: -Anticipate discharge tomorrow -And [place] for oral pain medication -Continue with abdominal binder. -Continue full liquid diet -Continue antibiotics -Encourage patient to ambulate -Encourage patient to use incentive spirometer -GI prophylaxis Protonix and DVT prophylaxis Lovenox Physician Prototype Engineer note has been reviewed by physician. Signing provider agrees with the documented findings, assessment, and plan of care. Objective - Vital Signs Vital signs: Vital Signs Temp 98.4 F 10/27/20 12:07 Pulse 54 L 10/27/20 12:07 Resp 19 10/27/20 12:07 BP 150/81 10/27/20 12:07 Pulse Ox 96 10/27/20 12:07 Intake & Output 10/26/20 10/27/20 10/27/20 18:59 06:59 18:59 Intake Total 980 900 Balance 980 900 Intake: Intake, IV Titration 900 Amount Sodium Chloride 0.9% 1, 900 000 ml @ 75 mls/hr IV . [id number] [facility] Rx#:[id number] Oral 980 Other: Voiding Method Indwelling Catheter Toilet Toilet # Voids 2 1 - Labs CBC & Chem 7: 10/27/20 05:19 10/27/20 05:19 Labs: Abnormal Lab Results - Last 24 Hours (Table) 10/27/20 10/27/20 Range/Units 05:19 05:19 WBC 11.0 H (3.8-10.6) k/uL Plt Count 128 L D (150-450) k/uL Chloride 110 H (98-107) mmol/L Creatinine 0.42 L (0.52-1.04) mg/dL Glucose 104 H (74-99) mg/dL
[2020-10-27] MEDS: HYDROcodone/APAP 5-325MG 1 EACH TAB PO PRN ×2 (17:19→23:32)
--- NOTE | 2020-10-27 19:34 | P.PN ---
Progress Note - Text Progress Note Date: 10/27/20 Presenting complaint: Incarcerated hernia Hospital course: Ms. Aparicio is a 50-year-old female with a past medical history of morbid obesity, nephrolithiasis, hernia repair coming into the hospital with a chief complaint of left lower quadrant abdominal pain. Patient states that she started to have left lower abdominal pain for the past couple of days on and off, she thought it would go away did not pay much attention. But this morning the pain has worsened and she started to throw up couple of times. also reported loss of appetite. denied having any fevers chills or rigors. No chest pain or palpitations. No cough or difficulty breathing. No dysuria or hematuria. she has history of umbilical hernia. In the ER patient had temperature 97.9, heart rate 72, respiratory rate 20, blood pressure 129/76 saturating at 99% on room air. She had a CAT scan of the abdomen and pelvis showing evidence of partial small bowel obstruction and large incarcerated anterior abdominal wall ventral hernia, sigmoid diverticulosis without diverticulitis. October 25: Open repair of incarcerated incisional hernia. Postprocedure patient has abdominal binder. October 26: Sitting up in a chair. Abdominal pain. Had some wheezing from the incision site. Distaste in the mouth. No flatus. at the bedside. October 27: Feeling and looking better. Has been up to the bathroom. Incision wound was stopped. Abdominal binder in place. No flatus. Abdominal pain better. [id number] at the bedside. Review of systems: Was done for constitutional, cardiovascular, GI, pulmonary. relevant finding as above Active Medications Hydrocodone Bitart/Acetaminophen (Hydrocodone/Apap 5-325mg 1 Each Tab) 1 each PO Q4HR PRN PRN Reason: Pain Last Admin: 10/27/20 17:19 Dose: 1 each Documented by: Hydralazine HCl (Hydralazine Hcl 20 Mg/Ml 1 Ml Vial) 10 mg IVP Q6HR PRN PRN Reason: Blood Pressure - High Hydromorphone HCl (Hydromorphone 1 Mg/Ml 1 Ml Syringe) 1 mg IVP Q3HR PRN PRN Reason: Pain Last Admin: 10/26/20 20:17 Dose: 1 mg Documented by: Sodium Chloride (Saline 0.9%) 1,000 mls @ 75 mls/hr IV .[id number] [facility] Last Admin: 10/27/20 15:00 Dose: 75 mls/hr Documented by: Metronidazole 500 mg/ IV (Solution) 100 mls @ 100 mls/hr IVPB Q8HR [facility] Last Admin: 10/27/20 17:20 Dose: 100 mls/hr Documented by: Ceftriaxone Sodium 1 gm/ (Sodium Chloride) 50 mls @ 100 mls/hr IVPB Q24H [facility] Last Admin: 10/26/20 20:17 Dose: 100 mls/hr Documented by: Morphine Sulfate (Morphine Sulfate 4 Mg/Ml Syringe) 4 mg IV Q4HR PRN PRN Reason: Severe Pain Last Admin: 10/23/20 20:08 Dose: 4 mg Documented by: Naloxone HCl (Naloxone 0.4 Mg/Ml 1 Ml Vial) 0.2 mg IV Q2M PRN PRN Reason: Opioid Reversal Ondansetron HCl (Ondansetron 4 Mg/2 Ml Vial) 4 mg IVP Q8HR PRN PRN Reason: Nausea And Vomiting Last Admin: 10/23/20 20:07 Dose: 4 mg Documented by: Pantoprazole Sodium (Pantoprazole 40 Mg/10 Ml Vial) 40 mg IVP DAILY [facility] Last Admin: 10/27/20 08:41 Dose: 40 mg Documented by: On examination: VITAL SIGNS: 98.4, 54, 19, 150/81, 96% room air GENERAL APPEARANCE: Sitting up in a chair, looking better HEENT: Normal external appearance of nose and ear. Oral cavity normal EYES: Pupils equal. Conjunctiva normal. NECK: JVD not raised. Mass not palpable. RESPIRATORY: Respiratory effort normal. Lungs clear to auscultation. CARDIOVASCULAR: First and second sounds normal. No edema. ABDOMEN: Decreased tenderness , binder in place, no mass palpable, PSYCHIATRY: Alert and oriented x3. Mood and affect normal INVESTIGATIONS, reviewed in the clinical context: October 27: WBC 11 hemoglobin 13.5 potassium 4.2 creatinine 0.4 to Potassium 4.9 creatinine 0.42 WBC 12.3 hemoglobin 14.9 platelets 266 Computed tomography scan of the abdomen pelvis with contrast: Kidney stones in both the left and right kidney. Large left-sided abdominal wall ventral hernia containing multiple loops of small bowel. Transition point is of the hernia. Sigmoid diverticulosis Assessment and plan: -Acute incarcerated left Sided abdominal wall ventral hernia, containing multiple loops of small bowel. Underwent open repair of the same. Abdominal binder. -Significant oozing from incisional site-improved DC Lovenox. Follow CBC -Sigmoid diverticulosis, asymptomatic -Bilateral nephrolithiasis, asymptomatic Follow clinically -Morbid obesity BMI 47.8 Follow clinically and follow with PCP Doing better. Increase activity. Diet as per surgery. Discussed with patient.
[2020-10-27 19:40] VITALS: RESP 16
[2020-10-28] MEDS: SODIUM CHLORIDE 0.9% 1,000 ML IV SCH (05:32)
[2020-10-28 05:45] LABS: Basophils # (A) 0.1 k/uL (0-0.2); Basophils % (A) 1 %; Eosinophils # (A) 0.4 k/uL (0-0.7); Eosinophils % (A) 4 %; HGB 12.3 gm/dL (11.4-16.0); Lymphocytes # (A) 2.3 k/uL (1.0-4.8); Lymphocytes % (A) 20 %; MCH 29.6 pg (25.0-35.0); MCHC 33.2 g/dL (31.0-37.0); MCV 89.2 fL (80.0-100.0); Mean Platelet Volume 8.5; Monocytes # (A) 0.8 k/uL (0-1.0); Monocytes % (A) 7 %; Neutrophils # (A) 7.4 k/uL (1.3-7.7); Neutrophils % (A) 67 %; Platelet Count 187 k/uL (150-450); RBC 4.15 m/uL (3.80-5.40); RDW 13.7 % (11.5-15.5); WBC 11.1 k/uL (3.8-10.6)
[2020-10-28] MEDS: PANTOPRAZOLE 40 MG/10 ML VIAL IVP SCH (08:22)
[2020-10-28] MEDS: metroNIDAZOLE-NS PMX 500 MG in SALINE 1 100ML.BAG IVPB SCH (08:22)
[2020-10-28 12:31] VITALS: BP 116/70; PULSE 59; TEMP 98.4
--- NOTE | 2020-10-28 13:08 | P.DS ---
Providers Date of admission: 10/23/20 03:09 Expected date of discharge: 10/28/20 Attending physician: Kelechi Bradford Consults: 10/23/20 13:34 Consult Physician Routine Consulting Provider: Jose Marshall Consult Reason/Comments: Medical management Do you want consulting provider notified?: Yes Primary care physician: Loc Henrry [facility] Course: Discharge diagnosis 1. Incarcerated incisional hernia status post open repair Hospital course This is a 50-year-old female admitted through the emergency room with abdominal pain and nausea. Her computed tomography scan had shown evidence of incarcerated hernia and evidence of a partial small bowel obstruction. Patient is status post open repair of incarcerated incisional hernia. She tolerated surgery well. Her pain is controlled. She is tolerating diet. She is having flatus and BM. She is afebrile. She is up and ambulating. She is stable for discharge. Please refer to chart for any further details. Physician College Service Officer note has been reviewed by physician. Signing provider agrees with the documented findings, assessment, and plan of care. Patient Condition at Discharge: Stable Plan - Discharge Summary Discharge Rx Participant: No New Discharge Prescriptions: New HYDROcodone/APAP 5-325MG [[place] 5-325] 1 tab PO Q6HR PRN 3 Days #12 tab PRN Reason: Pain Docusate [Colace] 100 mg PO BID #30 capsule Continue Thiamine HCl [Vitamin B-1] 100 mg PO DAILY Calcium/Magnesium/Zinc [Fhbddkr-Msuaypzip-Vdnr Tablet] 1 cap PO DAILY [place]-3 Fatty Acids/Fish Oil [Fish Oil 1,000 mg Softgel] 1 cap PO DAILY Ascorbic Acid [Vitamin C] 1,000 mg PO DAILY Cholecalciferol [Vitamin D3 (25 Mcg = 1000 Iu)] 50 mcg PO DAILY No Action Cider Vinegar [Apple Cider Vinegar] 300 mg PO DAILY Discharge Medication List Ascorbic Acid [Vitamin C] 1,000 mg PO DAILY 10/23/20 [History] Calcium/Magnesium/Zinc [Bmvgroy-Qsnwaixkh-Ckiv Tablet] 1 cap PO DAILY 10/23/20 [History] Cholecalciferol [Vitamin D3 (25 Mcg = 1000 Iu)] 50 mcg PO DAILY 10/23/20 [History] Cider Vinegar [Apple Cider Vinegar] 300 mg PO DAILY 10/23/20 [History] Kent-3 Fatty Acids/Fish Oil [Fish Oil 1,000 mg Softgel] 1 cap PO DAILY 10/23/20 [History] Thiamine HCl [Vitamin B-1] 100 mg PO DAILY 10/23/20 [History] Docusate [Colace] 100 mg PO BID #30 capsule 10/28/20 [Rx] HYDROcodone/APAP 5-325MG [[place] 5-325] 1 tab PO Q6HR PRN 3 Days #12 tab 10/28/20 [Rx] Follow up Appointment(s)/Referral(s): Loc Sales MD [Primary Care Provider] - 1-2 days Kelechi Bradford MD [STAFF PHYSICIAN] - 1 Week Activity/Diet/Wound Care/Special Instructions: No driving while taking [place] No lifting over 10 pounds You may shower. No soaking or tub baths for 2 weeks Very light activity until you are reevaluated at your follow up appointment with your surgeon Discharge Disposition: HOME SELF-CARE
--- NOTE | 2020-10-28 17:25 | P.PN ---
Progress Note - Text Progress Note Date: 10/28/20 Presenting complaint: Incarcerated hernia Hospital course: Ms. Aparicio is a 50-year-old female with a past medical history of morbid obesity, nephrolithiasis, hernia repair coming into the hospital with a chief complaint of left lower quadrant abdominal pain. Patient states that she started to have left lower abdominal pain for the past couple of days on and off, she thought it would go away did not pay much attention. But this morning the pain has worsened and she started to throw up couple of times. also reported loss of appetite. denied having any fevers chills or rigors. No chest pain or palpitations. No cough or difficulty breathing. No dysuria or hematuria. she has history of umbilical hernia. In the ER patient had temperature 97.9, heart rate 72, respiratory rate 20, blood pressure 129/76 saturating at 99% on room air. She had a CAT scan of the abdomen and pelvis showing evidence of partial small bowel obstruction and large incarcerated anterior abdominal wall ventral hernia, sigmoid diverticulosis without diverticulitis. October 25: Open repair of incarcerated incisional hernia. Postprocedure patient has abdominal binder. October 26: Sitting up in a chair. Abdominal pain. Had some wheezing from the incision site. Distaste in the mouth. No flatus. at the bedside. October 27: Feeling and looking better. Has been up to the bathroom. Incision wound was stopped. Abdominal binder in place. No flatus. Abdominal pain better. [id number] at the bedside. October 28: Doing much better today. Took a shower. Has been vomiting. Pain much better. Had a bowel movement. Appetite improved. Review of systems: Was done for constitutional, cardiovascular, GI, pulmonary. relevant finding as above Current medications reviewed in today's electronic records On examination: VITAL SIGNS: 98.4, 59, 16, 116/70, 97% room air GENERAL APPEARANCE: Sitting up in a chair, improved HEENT: Normal external appearance of nose and ear. Oral cavity normal EYES: Pupils equal. Conjunctiva normal. NECK: JVD not raised. Mass not palpable. RESPIRATORY: Respiratory effort normal. Lungs clear to auscultation. CARDIOVASCULAR: First and second sounds normal. No edema. ABDOMEN: Decreased tenderness , binder in place, no mass palpable, PSYCHIATRY: Alert and oriented x3. Mood and affect normal INVESTIGATIONS, reviewed in the clinical context: October 28: WBC 11 hemoglobin 12.3 October 27: WBC 11 hemoglobin 13.5 potassium 4.2 creatinine 0.4 to Potassium 4.9 creatinine 0.42 WBC 12.3 hemoglobin 14.9 platelets 266 Computed tomography scan of the abdomen pelvis with contrast: Kidney stones in both the left and right kidney. Large left-sided abdominal wall ventral hernia containing multiple loops of small bowel. Transition point is of the hernia. Sigmoid diverticulosis Assessment and plan: -Acute incarcerated left Sided abdominal wall ventral hernia, containing multiple loops of small bowel. Underwent open repair of the same. Abdominal binder. -Significant oozing from incisional site-improved DC Lovenox. Follow CBC -Sigmoid diverticulosis, asymptomatic -Bilateral nephrolithiasis, asymptomatic Follow clinically -Morbid obesity BMI 47.8 Follow clinically and follow with PCP Much improved. Doing well. If discharged to follow-up with PCP. Thank you Dr. Bradford
== END 2020-10-28 13:54 | disposition home or self-care (01) | DRG 354 ==
LOC: EC 00:34 → 5NMEDONC 03:09
PROVIDERS: ADMIT Surgery; ATTEND Surgery
PROC: 0DBU0ZZ Excision of Omentum, Open Approach (ICD-10-PCS; 2020-10-25)
PROC: 0WQF0ZZ Repair Abdominal Wall, Open Approach (ICD-10-PCS; principal; 2020-10-25 10:00)
DX: K43.0 Incisional hernia with obstruction, without gangrene (principal); Z68.42 Body mass index [BMI] 45.0-49.9, adult; Z83.3 Family history of diabetes mellitus; Z87.442 Personal history of urinary calculi; E66.01 Morbid (severe) obesity due to excess calories; E87.5 Hyperkalemia; D72.829 Elevated white blood cell count, unspecified; K57.30 Diverticulosis of large intestine without perforation or abscess without bleeding; N20.0 Calculus of kidney; F17.200 Nicotine dependence, unspecified, uncomplicated; Z98.891 History of uterine scar from previous surgery
CPT/HCPCS: 36415; 74177; 80048; 80053; 81001; 83605; 83690; 85025; 88305; 96374; 96375; 96376; 99285